=== PATIENT | male | born 1970 | race Caucasian/White ===

== ENCOUNTER 2018-05-07 18:58 | Emergency (ER) | payer BC ==
[~2018-05-07] VITALS: Ht 165.1 cm; Wt 63.5 kg
[2018-05-07 19:06] VITALS: BP_SYST 120
--- NOTE | 2018-05-07 19:34 | NUR ---
Called patient for ER bed placement. Shaquille grayson in the waiting room, hallway or restroom.
--- NOTE | 2018-05-07 19:40 | NUR ---
Called patient for ER bed placement. Shaquille grayson in the waiting room, hallway or restroom.
--- NOTE | 2018-05-07 19:50 | NUR ---
Patient left without being seen.
== END 2018-05-07 19:50 | disposition left against medical advice (07) ==
LOC: SED 18:58
DX: S61.210A Laceration without foreign body of right index finger without damage to nail, initial encounter (principal); Z53.21 Procedure and treatment not carried out due to patient leaving prior to being seen by health care provider; W27.2XXA Contact with scissors, initial encounter; Y93.89 Activity, other specified; Y92.89 Other specified places as the place of occurrence of the external cause; Y99.8 Other external cause status